=== PATIENT | male | born 1985 | race Caucasian/White ===

== ENCOUNTER 2020-03-17 23:21 | Emergency (ER) | payer BC ==
[~2020-03-17] VITALS: Ht 185.4 cm; Wt 86.0 kg
[2020-03-18] MEDS ORDERED: IBUPROFEN 400MG TABLET PO ONE
[2020-03-18 00:45] VITALS: BP 118/73
== END 2020-03-18 01:54 | disposition home or self-care (01) ==
LOC: ER 23:21
DX: S43.422A Sprain of left rotator cuff capsule, initial encounter (principal); W22.8XXA Striking against or struck by other objects, initial encounter; Y93.89 Activity, other specified; Y92.013 Bedroom of single-family (private) house as the place of occurrence of the external cause
CPT/HCPCS: 73030; 99283